=== PATIENT | male | born 2000 | race Caucasian/White ===

== ENCOUNTER 2022-05-20 18:23 | Emergency (ER) | payer MEDICAID ==
[~2022-05-20] VITALS: Ht 182.9 cm; Wt 97.5 kg
[2022-05-20 19:22] VITALS: BP 134/84
[2022-05-20] MEDS ORDERED: CLIN300C12 PO (19:44)
--- NOTE | 2022-05-20 19:51 | NUR ---
PT LEFT PRIOR TO RECIEVING DISCHARGE PAPERS.
== END 2022-05-20 20:27 | disposition left against medical advice (07) ==
LOC: ER 18:23
DX: L03.811 Cellulitis of head [any part, except face] (principal); Z91.018 Allergy to other foods

== ENCOUNTER 2025-05-26 16:23 | Emergency (ER) | payer MEDICAID, OTHER ==
[~2025-05-26] VITALS: Ht 180.3 cm; Wt 99.8 kg
[~2025-05-26 16:23] MED LIST: CLIN300C12 PO
[2025-05-26] MEDS: TDAP [DIPH/PERTUSSIS/TET] 0.5 ML VIAL IM ONE (17:30)
[2025-05-26] MEDS ORDERED: TDAP [DIPH/PERTUSSIS/TET] 0.5 ML VIAL IM ONE (17:35)
[2025-05-26] MEDS ORDERED: ACETAMINOPHEN ES 500 MG TABLET ONE (17:35)
[2025-05-26] MEDS ORDERED: IBUPROFEN 600 MG TABLET ONE (17:35)
[2025-05-26] MEDS ORDERED: LIDOCAINE HCL/PF 2 % 5ML SDV 5 ML VIAL ONE (17:35)
[2025-05-26] MEDS: IBUPROFEN 600 MG TABLET PO ONE (17:40)
[2025-05-26] MEDS: LIDOCAINE HCL/PF 1% 30 ML VIAL TP ONE (17:40)
[2025-05-26] MEDS: BACI/NEOM/POLY B OINT PKT 1 UDPKT PACKET TP ONE (17:40)
[2025-05-26] MEDS: ACETAMINOPHEN ES 500 MG TABLET PO ONE (17:40)
[2025-05-26] MEDS ORDERED: AMOX-430 PO (18:19)
[2025-05-26] MEDS ORDERED: IBUP-1490 PO (18:19)
[2025-05-26 18:35] VITALS: BP 144/71; TEMP 98.1; O2SAT 99
== END 2025-05-26 18:35 | disposition home or self-care (01) ==
LOC: ER 17:41
DX: S61.431A Puncture wound without foreign body of right hand, initial encounter (principal); W54.0XXA Bitten by dog, initial encounter; Y93.89 Activity, other specified; Y92.89 Other specified places as the place of occurrence of the external cause; Y99.9 Unspecified external cause status
CPT/HCPCS: 99283; 90471; 90715; 73130; J3490 ×2; A6403